=== PATIENT | female | born 1980 | race Caucasian/White ===

== ENCOUNTER → 2019-03-08 13:29 | Outpatient (CLI) | payer OTHER, SELFPAY ==
[2019-03-08 14:03] LABS: Follicle Stimulating Hormone 4.4 mIU/mL
[2019-03-21 17:31] LABS: HPV APTIMA, High Risk Negative (Negative)
[2019-03-25 14:40] LABS: HPV Reflexed? YES, CHARGE PATIENT
== END ==
LOC: LABSPEC 13:33
PROVIDERS: Visit Provider Obstetrics & Gynecology
DX: N95.1 Menopausal and female climacteric states (principal); Z12.4 Encounter for screening for malignant neoplasm of cervix
CPT/HCPCS: 83001; 87624; 88175; G0145

== ENCOUNTER → 2019-11-21 10:39 | Outpatient (CLI) | payer OTHER, SELFPAY ==
[2019-11-23 11:50] LABS: Cancer Antigen 125 5.7 U/mL (0.0-38.1)
== END ==
LOC: WOBLAB 10:40
PROVIDERS: Visit Provider Obstetrics & Gynecology
DX: N83.202 Unspecified ovarian cyst, left side (principal)
CPT/HCPCS: 36415; 86304

== ENCOUNTER → 2020-11-20 13:13 | Outpatient (CLI) | payer OTHER, SELFPAY ==
[2020-11-25 19:24] LABS: HPV Reflexed? NOT INDICATED
== END ==
PROVIDERS: Visit Provider Obstetrics & Gynecology
DX: Z12.4 Encounter for screening for malignant neoplasm of cervix (principal)
CPT/HCPCS: 88175; G0145

== ENCOUNTER → 2020-12-18 11:24 | Outpatient (CLI) | payer OTHER, SELFPAY ==
--- NOTE | 2020-12-18 11:28 | CT_ITS ---
STUDY: CT ABDOMEN AND PELVIS WITH AND WITHOUT CONTRAST REASON FOR EXAM: Female, 40 years old. UNSPECIFIED ABD PAIN RADIATION DOSAGE (If Supplied By Facility): CTDIvol = ( 18.85 ) mGy, DLP = ( 2965.53 ) mGycm TECHNIQUE: Transaxial images were obtained from the dome of the diaphragm to the symphysis pubis without oral contrast. Oral and amp; IV Gastrografin ; 100mL Isovue-300 was administered. Sagittal and coronal images were reconstructed. Individualized dose optimization techniques were used for this CT. COMPARISON: None. FINDINGS: The visualized lung bases are unremarkable. The visualized portions of the heart are within normal limits. Normal liver. Normal gallbladder and extrahepatic biliary system. Normal spleen. Normal pancreas. Normal bilateral adrenal glands. Normal right kidney. Normal left kidney. Normal visualized stomach. Normal small intestine. Normal colon. The appendix is visualized and appears normal. Normal abdominal aorta. Normal inferior vena cava. Normal retroperitoneum. Normal urinary bladder. Normal visualized uterus. There is a small umbilical hernia containing fat. Normal osseous structures. CT/CT Abd/Pelvis W/WO Contrast IMPRESSION: No renal stones or focal renal mass is identified. No acute intra-abdominal process. Electronically Signed: Rojelio Bower MD at 17:08 EDT Tel , Service support ,
== END ==
LOC: CT 11:26
PROVIDERS: PCP Family Medicine; Referring Provider Urology; Visit Provider Urology
DX: R10.9 Unspecified abdominal pain (principal)
CPT/HCPCS: 74178; Q9967